=== PATIENT | female | born 2000 | race Caucasian/White ===

== ENCOUNTER → 2023-09-08 06:54 | Outpatient (REF) | payer OTHER, SELFPAY | LOC: PNTC 06:54 | PROVIDERS: ATTENDING PHYSICIAN Obstetrics & Gynecology | DX: Z34.82 Encounter for supervision of other normal pregnancy, second trimester (principal) | CPT/HCPCS: 76805 ==

== ENCOUNTER 2023-10-26 10:51 | Emergency (ER) | payer OTHER, SELFPAY ==
[2023-10-26 11:02] VITALS: BP 117/69
[2023-10-26 15:09] VITALS: BP 121/73
--- NOTE | 2023-10-26 15:13 | ED.GENMED ---
History of Present Illness
General
Chief Complaint: Cough
Source: patient
Exam Limitations: none
Time Seen by Provider: 10/26/23 15:03
Travel History
Have you had any contact with someone who has COVID-19?: No
Do you have any symptoms of coronavirus? Fever > 100 degrees, chills, cough, shortness of breath, sore throat, loss of taste or smell, muscle aches, or headache?: No
History of Present Illness
History of Present Illness:
23-year-old healthy female G1, P0 27-week vomited last evening somewhat typical for her and felt like she aspirated it to the right side. Feels like there are some coarse feelings to the right upper lobe and right side of the
neck. No trouble breathing or swallowing. No fever. Was told by her OB to come in for evaluation
Past History
Past History
ED Past Medical History: Asthma
ED Past Surgical History: Orthopedic
Review of Systems
Review of Systems
All Other Systems: Not applicable
Constitutional: Denies fever
Respiratory: Reports cough; Denies hemoptysis
ABD/GI: Reports no symptoms
: Reports no symptoms
Phy Exam
Physical Exam
Physical Exam:
GENERAL: Alert and oriented in no apparent distress
EYE: Orbits normal.
NECK: Supple, no crepitus. No neck swelling.
ENT: Pharynx without erythema. No drooling or stridor
CARDIAC: Regular rate and rhythm without any obvious murmurs.
LUNGS: No respiratory distress but some coarse rhonchi right midlung
ABDOMEN: Soft, consistent with 27-week . Nontender.
NEUROLOGICAL: Alert and oriented , grossly non-focal
SKIN: Warm and dry, no rash or lesion, no discoloration, skin intact.
MUSCULOSKELETAL: No edema,no deformity.Good color
PSYCH: Normal and appropriate interaction.
Course
Orders/Labs/Results
Orders:
Orders
10/26/23 15:11
Ipratropium/Albuterol Sulfate [Duoneb] 3 ml INH R NOW ONE
Chest Single View Frontal CR [CR Chest Single View] Urgent
Comment:
Reason For Exam: aspiration. rhonchi rul
Vital Signs
Initial and Last Documented VS:
Initial Vital Signs
Temp Pulse Resp BP Pulse Ox
98.5 F 102 16 117/69 98
10/26/23 11:02 10/26/23 11:02 10/26/23 11:02 10/26/23 11:02 10/26/23 11:02
Last Documented Vital Signs
Temp Pulse Resp BP Pulse Ox
98.5 F 103 18 110/73 98
10/26/23 11:02 10/26/23 16:38 10/26/23 16:38 10/26/23 16:38 10/26/23 16:38
MDM/Problems Addressed
Differential Diagnosis Includes:
Symptoms all consistent with a aspiration. No respiratory distress. Pulse ox running 95 to 96%. Will get a frontal chest x-ray only. DuoNeb treatment. Patient's SUPPORT COORDINATOR notified
*Critical Care Note
Total Time (30-74mins, 75-104mins- exclusive of procedures): Not Applicable
Update Note
Update Note:
Chest x-ray negative. Mild rhonchi right upper lobe. Likely a mild aspiration. No respiratory distress. Repeat pulse ox 99% prior to discharge. Will give a prescription for a steroid inhaler and antibiotics although we will hold on antibiotics
for now unless symptoms do not improve or she develops a fever. heart rate good. Discussed with SLEEP MANAGER
ED Attending Note
-
Portions of this chart may have been created with voice recognition software.� Occasional wrong word or��sound alike� substitutions may have occurred due to the inherent limitations of voice recognition software.
Discharge Plan
Departure
Patient Disposition: Home (Routine Discharge)
Date of Disposition: 10/26/23
Time of Disposition: 16:39
Patient with high blood pressure during this ER visit?: No
Discharge Problem:
Aspiration pneumonitis,
Prescriptions:
New
amoxicillin-pot clavulanate 875-125 mg tablet
1 tab PO BID Qty: 14 0RF
fluticasone propionate 110 mcg/actuation HFA aerosol inhaler
1 inh inhalation BID Qty: 12 0RF
Referrals:
Van Nicholson MD [Family Provider] - Follow up in 2-3 days
Activity Restrictions/Additional Instructions:
Continue your regular inhaler of albuterol and your nebulizer
Add the Flovent inhaler twice a day for the next week or so
Only start the antibiotic if symptoms or not improving in 24 to 36 hours or you develop a fever
Return immediately with increased shortness of breath high fever pleuritic pain or any other concerning symptoms
Follow-up closely with your SLEEP MANAGER/front office administrator
Interventions
Interventions:
ED- Fall Risk Assessment Last Done: 10/26/23 15:05
*ED COVID-19 Vaccine History Last Done: 10/26/23 11:02
*Nursing Disposition Last Done: 10/26/23 16:47
ED- Pulmonary Assessment Last Done: 10/26/23 15:05
Discharge Date and Time
Discharge Date/Time: 10/26/23 16:47
Print Language: [place] CITIZ[place]
[2023-10-26] MEDS: DUONEB 3 ML INH (15:16)
[2023-10-26 16:38] VITALS: BP 110/73
== END 2023-10-26 16:47 | disposition home or self-care (01) ==
LOC: EMR 10:51
PROVIDERS: EMERGENCY PHYSICIAN Emergency Medicine; FAMILY PHYSICIAN Internal Medicine
DX: O26.892 Other specified pregnancy related conditions, second trimester (principal); J69.0 Pneumonitis due to inhalation of food and vomit; Z3A.27 27 weeks gestation of pregnancy
CPT/HCPCS: 99283; 94640; 71045

== ENCOUNTER 2024-01-25 10:14 | Observation (INO) | payer OTHER, SELFPAY ==
[2024-01-25 10:32] VITALS: BP 129/76; BMI 30.1
== END 2024-01-25 13:22 | disposition home or self-care (01) ==
LOC: LDRP 10:14
PROVIDERS: ADMITTING PHYSICIAN Obstetrics & Gynecology
DX: O46.93 Antepartum hemorrhage, unspecified, third trimester (principal); Z3A.39 39 weeks gestation of pregnancy; J45.909 Unspecified asthma, uncomplicated; O99.113 Other diseases of the blood and blood-forming organs and certain disorders involving the immune mechanism complicating pregnancy, third trimester; D69.6 Thrombocytopenia, unspecified
CPT/HCPCS: 36415; 76815; 86850; 86900; 86901; G0378

== ENCOUNTER 2024-01-26 03:49 | Inpatient (IN) | payer OTHER, SELFPAY ==
[2024-01-26 03:59] VITALS: BMI 30.1
[2024-01-26 04:00] VITALS: BP 126/77
[2024-01-26 05:23] LABS: % Basophils 0.2 % (0-2); % Eosinophils 0.5 % (0-6); % Immature Granulocytes 0.5 % (0-0.5); % Lymphocytes 16.7 % (20.5-51.1); % Monocytes 4.7 % (1.7-9.3); % Neutrophils 77.4 % (42.2-75.2); Absolute Lymphocytes 1.4 10^3/uL (1.2-3.4); Absolute Monocytes 0.4 10^3/uL (0.1-0.6); Absolute Neutrophils 6.3 10^3/uL (1.4-6.5); Hematocrit 32.3 % (37.0-47.0); Hemoglobin 11.4 g/dL (12.0-16.0); Mean Corp Hgb Conc. 35.3 g/dL (33.0-37.0); Mean Corpuscular Hgb 30.2 pg (27.0-31.0); Mean Corpuscular Volume 85.4 fL (81.0-99.0); Mean Platelet Volume 12.7 fL (7.4-10.4); Nucleated Red Blood Cells % 0 %; Platelet Count 129 10^3/uL (130-400); Red Blood Cell Count 3.78 10^6/uL (4.20-5.40); White Blood Cell Count 8.1 10^3/uL (4.8-10.8)
[2024-01-26] MEDS: PEPCID 40 MG PO (08:58)
[2024-01-26] MEDS: PITOCIN 30 UNITS/NSS 500 ML IV (11:24)
[2024-01-26] MEDS: LR 1000 IV (11:28)
[2024-01-26] MEDS: ZOFRAN 4 MG IV (12:41)
[2024-01-26] MEDS: FENTANYL/BUPIVACAINE 100 EPIDURAL (13:09)
[2024-01-26] MEDS: SUBLIMAZE 100 MCG EPIDURAL (13:09)
[2024-01-26] MEDS: PEPCID PO (19:23)
[2024-01-26] MEDS: MOTRIN 600 MG PO (19:23)
[2024-01-26] MEDS: SENOKOT-S 1 TABLET PO (21:23)
[2024-01-27] MEDS: MOTRIN 600 MG PO ×4 (02:19→20:55)
[2024-01-27 05:24] LABS: Hematocrit 30.3 % (37.0-47.0); Hemoglobin 10.9 g/dL (12.0-16.0)
[2024-01-27] MEDS: PEPCID 40 MG PO (07:42)
[2024-01-27] MEDS: PRENATAL PLUS 1 TABLET PO (07:46)
[2024-01-27] MEDS: TYLENOL 650 MG PO (17:08)
[2024-01-27] MEDS: PEPCID PO (20:15)
[2024-01-28] MEDS: MOTRIN 600 MG PO (03:53)
[2024-01-28] MEDS: PRENATAL PLUS 1 TABLET PO (07:40)
[2024-01-28] MEDS: SENOKOT-S 1 TABLET PO (07:40)
[2024-01-28] MEDS: PEPCID 40 MG PO (07:41)
[2024-01-29 14:47] LABS: Syphilis/T. pallidum Ab Reflex Negative (Negative)
== END 2024-01-28 11:30 | disposition home or self-care (01) | DRG 806 ==
LOC: LDRP 03:49
PROVIDERS: Obstetrics & Gynecology; ADMITTING PHYSICIAN Obstetrics & Gynecology
PROC: 3E033VJ Introduction of Other Hormone into Peripheral Vein, Percutaneous Approach (ICD-10-PCS; 2024-01-26)
PROC: 10907ZC Drainage of Amniotic Fluid, Therapeutic from Products of Conception, Via Natural or Artificial Opening (ICD-10-PCS; 2024-01-26)
PROC: 0KQM0ZZ Repair Perineum Muscle, Open Approach (ICD-10-PCS; 2024-01-26)
PROC: 10E0XZZ Delivery of Products of Conception, External Approach (ICD-10-PCS; 2024-01-26)
DX: O70.1 Second degree perineal laceration during delivery (principal); O99.12 Other diseases of the blood and blood-forming organs and certain disorders involving the immune mechanism complicating childbirth; Z37.0 Single live birth; Z3A.39 39 weeks gestation of pregnancy; D69.6 Thrombocytopenia, unspecified; O99.52 Diseases of the respiratory system complicating childbirth; J45.909 Unspecified asthma, uncomplicated; O99.62 Diseases of the digestive system complicating childbirth; K21.9 Gastro-esophageal reflux disease without esophagitis
CPT/HCPCS: 85014; 85018; 85025; 86780; 86850; 86900; 86901